=== PATIENT | female | born 1950 | race Caucasian/White ===

== ENCOUNTER → 2016-06-22 | Outpatient (CLI) | payer MEDICARE, OTHER ==
[2016-06-22 14:38] LABS: Basophils # (A) 0.1 k/uL (0-0.2); Basophils % (A) 1 %; CH 34.2; CHCM 34.3; Eosinophils # (A) 0.2 k/uL (0-0.7); Eosinophils % (A) 3 %; HCT 40.3 % (34.0-46.0); HDW 2.53; HGB 13.5 gm/dL (11.4-16.0); Luc # (Auto) 0.09; Luc % (Auto) 2; Lymphocytes # (A) 1.3 k/uL (1.0-4.8); Lymphocytes % (A) 25 %; MCH 33.6 pg (25.0-35.0); MCHC 33.6 g/dL (31.0-37.0); Mean Platelet Volume 7.7; Monocytes # (A) 0.3 k/uL (0-1.0); Monocytes % (A) 6 %; Neutrophils # (A) 3.4 k/uL (1.3-7.7); Neutrophils % (A) 63 %; RBC 4.03 m/uL (3.80-5.40); RDW 12.3 % (11.5-15.5); WBC 5.3 k/uL (3.8-10.6); WBC (Perox) 5.76
[2016-06-22 14:51] LABS: Partial Thromboplastin Time 22.8 sec (22.0-30.0); Prothrombin Time 10.5 sec (9.0-12.0)
--- NOTE | 2016-06-22 14:52 | XR ---
EXAMINATION TYPE: XR chest 2V DATE OF EXAM: 06/22/2016 2:40 PM COMPARISON: NONE HISTORY: Presurgical FINDINGS: The lungs are clear and there is no pneumothorax, pleural effusion, or focal pneumonia. Hypertrophi c and degenerative change of the spine. IMPRESSION: 1. No acute process.
[2016-06-22 14:53] LABS: Anion Gap 9 mmol/L; Blood Urea Nitrogen 22 mg/dL (7-17); Calcium 9.5 mg/dL (8.4-10.2); Carbon Dioxide 29 mmol/L (22-30); Chloride 104 mmol/L (98-107); Glucose 89 mg/dL (74-99); Non-African American GFR(MDRD) 56 (>60 ml/min/1.73 sqM); Potassium 4.8 mmol/L (3.5-5.1); Sodium 142 mmol/L (137-145)
[2016-06-22 14:55] LABS: Appearance,Urine Clear (Clear); Bilirubin,Urine Negative (Negative); Glucose,Urine (UA) Negative (Negative); Ketones,Urine Negative (Negative); Leukocyte Esterase,Urine Negative (Negative); Nitrite,Urine Negative (Negative); Protein,Urine Negative (Negative); Specific Gravity,Urine 1.003 (1.001-1.035); UA Billing (MACRO vs. MICRO) CHEM; Urobilinogen,Urine <2.0 mg/dL (<2.0)
== END | disposition home or self-care (01) ==
LOC: LABWHC1 14:01
PROVIDERS: ATTEND Orthopaedic Surgery Orthopaedic Surgery of the Spine
DX: Z01.818 Encounter for other preprocedural examination (principal); Z01.812 Encounter for preprocedural laboratory examination
CPT/HCPCS: 36415; 71020; 80048; 81003; 85025; 85610; 85730; 86850; 86900; 86901

== ENCOUNTER 2016-07-01 06:13 | Inpatient (IN) | payer MEDICARE, OTHER ==
[2016-06-22 12:04] VITALS: BMI 29.2
[~2016-07-01 06:13] MED LIST: BACITRACIN 50,000 UNIT, POLYMYXIN B 500,000 UNIT in SODIUM CHLORIDE 0.9% IRRIGATIO 1,00... IRRIGATION ONE; LACTATED RINGERS 1,000 ML IV SCH; LIDOCAINE 1% 20 ML VIAL (10MG/ML) FOR IV START INTRADERMA PRN; ceFAZolin 2 GM in SODIUM CHLORIDE 0.9% 100 ML IVPB ONE
[2016-07-01] MEDS ORDERED: MIDAZOLAM 2 MG/2 ML VIAL IV ONE (07:04)
[2016-07-01] MEDS: ONDANSETRON 4 MG/2 ML VIAL IVP ONE ×2 (07:04→10:02)
[2016-07-01] MEDS ORDERED: ROCURONIUM BROMIDE 10 MG/ML 10 ML VIAL IV ONE (07:34)
[2016-07-01] MEDS ORDERED: GELATIN SPONGE,ABSORB (LARGE) 1 EACH SPONGE TOPICAL ONE (07:34)
[2016-07-01] MEDS ORDERED: PROPOFOL 10 MG/ML 20 ML VIAL IV ONE (07:34)
[2016-07-01] MEDS ORDERED: THROMBIN (BOVINE) 5,000 UNIT VIAL TOPICAL ONE (07:34)
[2016-07-01] MEDS ORDERED: fentaNYL (PF) 50 MCG/ML 2 ML AMP ONE (07:34)
[2016-07-01] MEDS ORDERED: SUCCINYLCHOLINE CHLORIDE 100 MG/5 ML SYR IV ONE (07:34)
[2016-07-01] MEDS ORDERED: DEXAMETHASONE SOD PHOS (MDV) 100 MG/10 ML VIAL ONE (07:34)
[2016-07-01] MEDS ORDERED: LIDOCAINE 0.5%-EPI 1:200,000 50 ML VIAL SQ ONE (07:34)
[2016-07-01] MEDS ORDERED: MIDAZOLAM 2 MG/2 ML VIAL ONE (07:34)
[2016-07-01] MEDS ORDERED: LIDOCAINE 1% INJ 10MG/ML (20 ML MDV) ONE (07:34)
--- NOTE | 2016-07-01 08:36 | XR ---
EXAMINATION TYPE: XR cervical spine 1V DATE OF EXAM: 07/01/2016 8:31 AM COMPARISON: NONE HISTORY: Needle placement Technique: There is a surgical instrument anterior to the C5-C6 disc space level. Severe degenerative disc disease at this level. Endotracheal tube noted. Multilevel facet arthropathy noted. Overlying t he nasal passage is a wire or catheter. IMPRESSION: 1. Intraoperative localization.
[2016-07-01] MEDS ORDERED: LACTATED RINGERS 1,000 ML IV ONE (09:02)
--- NOTE | 2016-07-01 09:36 | XR ---
EXAMINATION TYPE: XR cervical spine 1V DATE OF EXAM: 07/01/2016 9:32 AM COMPARISON: NONE HISTORY: Postop Single crosstable lateral view submitted The odontoid is intact. There are no compression deformities. Endotracheal tube noted. Postsurgical change compatible with anterior fixation appears in near-anatomic alignment. Multilevel facet arthrop athy and hypertrophic changes noted. IMPRESSION: 1. Postoperative change.
[2016-07-01] MEDS ORDERED: NON-FORMULARY DRUG (Fluocinolone Acetonide Oil [Fluocinolone Acetonide Oil (Otic)] 5 DROPS BOTH EARS PRN (09:38)
[2016-07-01] MEDS ORDERED: MECLIZINE 25 MG TAB PO PRN (09:38)
[2016-07-01] MEDS ORDERED: ALBUTEROL NEBULIZED 2.5 MG/3 ML INHALATION PRN (09:38)
[2016-07-01] MEDS ORDERED: hydrOXYzine HCL 25 MG TAB PO PRN (09:38)
[2016-07-01] MEDS ORDERED: NITROGLYCERIN SL TABS 0.4 MG TAB SUBLINGUAL PRN (09:38)
[2016-07-01] MEDS ORDERED: HYDROmorphone 1 MG/ML 1 ML SYRINGE IVP PRN (09:40)
[2016-07-01] MEDS ORDERED: DIAZEPAM 5 MG TAB PO PRN (09:40)
[2016-07-01] MEDS ORDERED: ONDANSETRON 4 MG/2 ML VIAL IVP PRN (09:40)
[2016-07-01] MEDS ORDERED: traMADol-ACETAMINOP 37.5-325MG 1 EACH TAB PO PRN (09:41)
--- NOTE | 2016-07-01 09:46 | P.OP ---
Date of Procedure: 07/01/16 Preoperative Diagnosis: Cervical stenosis C3 5 6 C6 7, degenerative disc disease C5 6 C6 7, upper extremity radiculopathy, severe osteophytes C5 6 C6 7 Postoperative Diagnosis: Same Anesthesia: GETA Pathology: none sent Condition: stable Disposition: PACU Description of Procedure: BRIEF OPERATIVE NOTE Preoperative Diagnosis: Cervical stenosis C5 6 C6 7, cervical disc disease C5 6 C6 7, upper extremity radiculopathy, severe osteophyte formation C5 6 C6 7 Postoperative Diagnosis: Same Procedure: Anterior cervical decompression and fusion C5 6 C6 7 Placement of interbody graft C5 6 C6 7 Application of anterior cervical plate C5 6 C6 7 Removal of large osteophyte C5 6 C6 7 Surgeon: Dr. Issa Social Sciences Professor: Kendrick Brown is present throughout the entire the case persistence during positioning, dissection, exposure, visualization, and all crucial elements of the case as well as closure. Anesthesia: General anesthesia Estimated blood loss: Approximately 50 mL Complications: None apparent Components implanted: K2M Warrior anterior cervical plate system with screws and allograft interbody bone graft with 1 mL of DBX bone putty to supplemental the bone graft Disposition: To recovery room in good stable condition. OPERATIVE INDICATIONS The patient has had long-standing issues in their neck and upper extremities. She is found to have severe changes at her cervical spine with significant stenosis and degenerative disc disease with large osteophytes at C5 6 and C6 7. These findings correlated well with her neck and upper extremity symptoms. The patient has been through conservative treatment. We discussed various treatment options including surgery, and the patient wishes to proceed with surgery We discussed the risk, patient's alternatives and benefits of surgery including but not limited to, risk of bleeding risk of infection, risk of need for further surgery, risk of decreased, loss of motion, muscle function, malunion nonunion, hardware failure, nerve damage, paralysis, heart attack, and . OPERATIVE SUMMARY After discussing all the risks, patient alternatives and benefits at length, the patient elected to proceed with surgical intervention, signed informed consent, and presented for their procedure. The patient was seen and examined in the preoperative holding area and the surgical site was marked. The patient was given antibiotics and brought to the operating room. The patient was positioned on the operating room table in a supine position being careful to pad any bony prominences and pressure points. The patient was sedated and intubated by anesthesia in standard fashion. Once the airway and C- spine were stabilized the patient's arms were padded and tucked at her side, with her shoulders gently taped. The head was placed in a donut pad with the neck in good neutral alignment and position. We were careful to maintain the patient's cervical spine and good neutral alignment and position throughout. The patient was prepped and draped in a normal standard fashion. An appropriate timeout and keystone protocol performed. We were able to proceed with the surgery. The local wound area was infiltrated with local anesthetic. An incision was made transversely approximately 2-1/2 cm over the appropriate levels at C6. Dissection was taken down subcutaneously to the level of the platysma which was split in line with its fibers. Dissection was taken with a carotid approach, with the trachea and esophagus medial and the carotid sheath laterally. We dissected down to the anterior surface of the vertebral bodies at C5 6 and 7. Note was made of very large anterior cervical osteophytes at C5 6 and C6 7. Intraoperative x-ray was taken which showed a marker at the appropriate level. With the appropriate level positively confirmed, we were able to proceed with discectomy at the appropriate levels. All of the operative levels were exposed appropriately. The patient had all their twitches back, and there was no evidence of recurrent laryngeal issue. The wound was copiously irrigated and suctioned dry as had been done periodically throughout the case. At the appropriate level/levels, first at C5 6 and then at C6 7, I established an annulotomy with an 11 blade scalpel. A large osteophytes had to be addressed specifically where I took down the large osteophytes with a combination of curettes and rongeurs and a high-speed bur. A discectomy was performed with a combination of pituitary rongeurs, curettes, a high-speed bur, and Kerrison rongeurs. The posterior longitudinal ligament was taken down as were any posterior osteophytes. This gave good central and bilateral foraminal decompression. There is no evidence of any dural tear or leak. The endplates were prepared with a high-speed bur. With the endplates in good parallel position, I was able to size for the appropriate size interbody graft. The wound was irrigated and suctioned dry the graft was prepared and malleted into position. It had good alignment and position with the anterior surface flush with the anterior surface of the vertebral bodies. This was done similarly the appropriate levels first at C5 6 and then at C6 7. With the grafts intact, I was able to measure and contour and appropriate sized plate. The plate was positioned at the midline over the appropriate levels at C5 6 and 7. Screw holes were established with a hand drill and drill guide. Screws were placed in good alignment and position with excellent bony purchase. They were seated under the locking device. The construct was checked and found to be stable. Intraoperative x-ray was taken which showed good alignment and position of the implants at the appropriate levels. There was no evidence of any dural tear or leak. Good hemostasis was maintained. The wound was copiously irrigated and suctioned dry as had been done periodically throughout the case. The platysma was closed with absorbable suture. The subcutaneous tissue was closed. The subcuticular tissue was closed with absorbable suture. The wound was cleaned and dried and dressed appropriately. A soft cervical collar was placed appropriately. The patient was woken up by anesthesia, extubated, transferred back gently to their hospital bed and brought to the recovery room in good stable condition. The patient will be admitted to the hospital for appropriate postoperative care , medical management and monitoring. We will continue to follow them closely about the postoperative course.
[2016-07-01] MEDS: HYDROmorphone 1 MG/ML 1 ML SYRINGE IVP PRN ×2 (10:01→10:04)
[2016-07-01] MEDS: SODIUM CHLORIDE 0.9% 1,000 ML IV SCH (11:39)
[2016-07-01] MEDS: HYDROcodone/APAP 5-325MG 1 EACH TAB PO PRN ×3 (11:50→23:38)
[2016-07-01] MEDS ORDERED: LACTOBACILLUS ACIDOPH & BULGAR 1 EACH PACKET PO SCH (12:30)
[2016-07-01 13:54] VITALS: RESP 16
[2016-07-01] MEDS: ceFAZolin 2 GM in SODIUM CHLORIDE 0.9% 100 ML IVPB SCH ×2 (15:12→23:31)
[2016-07-01] MEDS: ALPRAZolam 0.25 MG TAB PO SCH ×2 (17:27→23:31)
[2016-07-01] MEDS ORDERED: NON-FORMULARY DRUG (Aspirin Ec 81 MG) PO SCH (21:00)
[2016-07-01] MEDS ORDERED: CYCLOBENZAPRINE 10 MG TAB PO SCH (21:00)
[2016-07-01] MEDS ORDERED: FLUTICASONE 50MCG/SPRAY NASAL 16GM EA NOSTRIL SCH (21:00)
[2016-07-01] MEDS ORDERED: LORATADINE 10 MG TAB PO SCH (21:00)
[2016-07-01] MEDS ORDERED: NON-FORMULARY DRUG (Simvastatin 10 MG) PO SCH (21:00)
[2016-07-01] MEDS ORDERED: LISINOPRIL 20 MG TAB PO SCH (21:00)
[2016-07-01] MEDS ORDERED: ESTROGENS, CONJUGATED 0.3 MG TAB PO SCH (21:00)
[2016-07-01] MEDS: CALCIUM CARB-VIT D 500MG-200UN 1 EACH TAB PO SCH (21:02)
[2016-07-01] MEDS: BENZOCAINE/MENTHOL LOZENG 1 EACH LOZENGE MUCOUS MEM PRN (21:02)
[2016-07-01] MEDS ORDERED: ASPIRIN 81 MG CHEW PO SCH (21:11)
[2016-07-02] MEDS: BENZOCAINE/MENTHOL LOZENG 1 EACH LOZENGE MUCOUS MEM PRN ×2 (01:13→08:00)
[2016-07-02] MEDS: SODIUM CHLORIDE 0.9% 1,000 ML IV SCH (02:00)
[2016-07-02] MEDS: HYDROcodone/APAP 5-325MG 1 EACH TAB PO PRN ×2 (04:59→09:20)
[2016-07-02] MEDS ORDERED: LEVOTHYROXINE 112 MCG TAB PO SCH (06:30)
[2016-07-02] MEDS: ALPRAZolam 0.25 MG TAB PO SCH (07:30)
[2016-07-02] MEDS: CALCIUM CARB-VIT D 500MG-200UN 1 EACH TAB PO SCH (07:31)
[2016-07-02 08:02] VITALS: BP 159/79; TEMP 97.8
[2016-07-02] MEDS ORDERED: METOPROLOL TARTRATE 25 MG TAB PO SCH (09:00)
[2016-07-02] MEDS ORDERED: HYDROCORTISONE 1% CREAM 30 GM TUBE TOPICAL PRN (09:19)
--- NOTE | 2016-07-02 09:19 | P.DS ---
Providers Date of admission: 07/01/16 06:13 Attending physician: Panchito Issa Primary care physician: [facility] Hospital Course: The patient presented on the day of admission as per her operative note. She feels her neck is doing well. She feels her upper extremity Had improvement with her surgery. She has been able to tolerate some diet. She has some itchiness around the area due to the tape. Physical Exam The incision site is clean dry and intact. There is no erythema no drainage. There is no purulence no evidence of infection. There is some generalized erythema over the area where the [place] was adherent. This appears to be stable and improving. Abdomen soft and nontender. Chest has good excursion with deep inspiration and expiration. The patient has active and passive range of motion intact at the upper and lower extremities. There is no acute change in neurologic status. She has 5 out of 5 strength with her upper extremities bilaterally. Hospital Course Postoperative day #1 status post anterior cervical discectomy and fusion C5 6 C6 7 for her cervical stenosis with degenerative disc disease and upper extremity radiculopathy. The patient has been making good progress postoperatively. She feels she is making good progress in her upper extremities already with her surgery. She had some reaction to the adhesive on her skin but with the adhesive remove this seems to be doing adequately. She may help the area with some hydrocortisone cream over the area as necessary. They have completed the prophylactic antibiotics without any signs or symptoms of infection. The patient has been able to advance their diet, and is tolerating diet adequately. The pain was initially controlled with IV medications and is now controlled appropriately with oral medications. The patient has been able to increase their mobilization. The patient has progressed appropriately. I think they are in good stable condition for discharge today. They will be sent home with appropriate prescriptions. I answered their questions to the best of my ability in a language that they can understand and they are agreeable with the plan. They will follow up as directed in approximately 2 weeks or sooner if she is having any problems. Patient Condition at Discharge: Good Plan - Discharge Summary New Discharge Prescriptions: HYDROcodone/APAP 5-325MG [Jewell 5] 1 each PO Q8HR PRN #60 tab PRN Reason: Severe Pain traMADol HCL/ACETAMINOPHEN [Ultracet 37.5-325] 1 each PO Q8HR PRN #60 tab PRN Reason: Pain Discharge Medication List ALPRAZolam [Xanax] 0.25 mg PO Q8HR 06/03/15 [History] Albuterol Sulfate [Proventil Hfa] 2 puff INHALATION RT-Q4H PRN 06/03/15 [History ] Aspirin EC [Ecotrin Low Dose] 81 mg PO HS 06/03/15 [History] Calcium Carbonate/Vitamin D3 [Calcium 600-Vit D3 400 Tablet] 1 tab PO BID [History] Cyclobenzaprine [Flexeril] 10 mg PO HS 06/03/15 [History] Ergocalciferol [Vitamin D2 (DRISDOL)] 50,000 unit PO QMONTH 06/03/15 [History] Fexofenadine HCl [Lulu Allergy] 180 mg PO HS 06/03/15 [History] Fluticasone Nasal [place] [Flonase Nasal [place]] 2 spr EA NOSTRIL HS 06/03/15 [ History] Ramipril [Altace] 10 mg PO HS 06/03/15 [History] Simvastatin [Zocor] 10 mg PO HS 06/03/15 [History] traMADol HCL/ACETAMINOPHEN [Ultracet 37.5-325] 1 tab PO Q12H PRN 06/03/15 [ History] Estrogens, Conjugated [Premarin] 0.3 mg PO HS 06/22/16 [History] Fluocinolone Acetonide Oil [Fluocinolone Acetonide Oil (Otic)] 5 drops BOTH EARS DAILY PRN 06/22/16 [History] L.acidoph,Paracasei, B.lactis [Probiotic] 1 cap PO W/LUNCH 06/22/16 [History] Levothyroxine Sodium [Synthroid] 112 mcg PO DAILY 06/22/16 [History] Meclizine [Antivert] 25 mg PO Q8H PRN 06/22/16 [History] Metoprolol Tartrate [Lopressor] 25 mg PO QAM 06/22/16 [History] Multivitamins, Thera [Multivitamin] 1 tab PO DAILY 06/22/16 [History] Nitroglycerin Sl Tabs [Nitrostat] 0.4 mg SL Q5M PRN 06/22/16 [History] hydrOXYzine HCL [Atarax] 50 mg PO TID PRN 06/22/16 [History] HYDROcodone/APAP 5-325MG [Jewell 5] 1 each PO Q8HR PRN #60 tab 07/02/16 [Rx] traMADol HCL/ACETAMINOPHEN [Ultracet 37.5-325] 1 each PO Q8HR PRN #60 tab [Rx] Follow up Appointment(s)/Referral(s): Panchito Issa, [Doctor of Osteopathic Medicine] - 2 Weeks (With Kendrick Payan at Dr. Issa's office) Activity/Diet/Wound Care/Special Instructions: Keep site clean. Do not soak incision in a tub. Try to keep Steri-Strips intact and allow them to fray off on their own. Steri-Strips may be removed after 5 days if necessary. On Wednesday May shower with area uncovered and allow area to get wet but do not soak in a tub. Avoid heavy or rigorous activity. May ambulate to tolerance. No overhead work. No repetitive bending twisting or lifting. No lifting greater than 15 pounds.
[2016-07-02 09:41] VITALS: PULSE 94
[2016-07-02] MEDS ORDERED: MULTIVITAMINS, THERA 1 EACH TAB PO SCH (12:00)
[2016-07-19] MEDS ORDERED: ERGOCALCIFEROL 50,000 UNIT CAP PO SCH (09:00)
== END 2016-07-02 10:45 | disposition home or self-care (01) | DRG 473 ==
LOC: 2ORMAIN 06:13 → 5MS5E 09:48
PROVIDERS: ADMIT Orthopaedic Surgery Orthopaedic Surgery of the Spine; ATTEND Orthopaedic Surgery Orthopaedic Surgery of the Spine
PROC: 0RB30ZZ Excision of Cervical Vertebral Disc, Open Approach (ICD-10-PCS; 2016-07-01)
PROC: 0RG20K0 Fusion of 2 or more Cervical Vertebral Joints with Nonautologous Tissue Substitute, Anterior Approach, Anterior Column, Open Approach (ICD-10-PCS; principal; 2016-07-01 07:30)
DX: M48.02 Spinal stenosis, cervical region (principal); I10 Essential (primary) hypertension; E78.5 Hyperlipidemia, unspecified; M25.78 Osteophyte, vertebrae; M50.122 Cervical disc disorder at C5-C6 level with radiculopathy; I25.10 Atherosclerotic heart disease of native coronary artery without angina pectoris; M47.22 Other spondylosis with radiculopathy, cervical region; M06.9 Rheumatoid arthritis, unspecified; E06.3 Autoimmune thyroiditis; Z95.5 Presence of coronary angioplasty implant and graft; Z79.82 Long term (current) use of aspirin; Z79.899 Other long term (current) drug therapy; Z88.0 Allergy status to penicillin; Z88.8 Allergy status to other drugs, medicaments and biological substances; Z91.040 Latex allergy status
CPT/HCPCS: 72020; 86850; 86900; 86901; 94640